=== PATIENT | male | born 2005 | race Caucasian/White ===

== ENCOUNTER 2024-05-10 20:18 | Emergency (ER) | payer SELFPAY ==
[~2024-05-10] VITALS: Ht 170.2 cm; Wt 55.0 kg
[2024-05-10 20:25] VITALS: O2SAT 100
[2024-05-10 22:31] LABS: HEMATOCRIT. 49.5 % (42.0-52.0); HEMOGLOBIN. 16.7 g/dL (14.0-18.0); MEAN CORPUSCULAR HEMOGLOBIN 30.4 pg (28.0-32.0); MEAN CORPUSCULAR HGB CONC 33.7 g/dL (31.0-37.0); MEAN CORPUSCULAR VOLUME 90.2 fL (80.0-94.0); MEAN PLATELET VOLUME 8.5 fl (7.4-10.4); PLATELET 211 x1000/uL (130-400); RED BLOOD CELL COUNT 5.49 mill/uL (4.7-6.1); RED CELL DISTRIBUTION WIDTH 12.9 % (11.6-14.6); WHITE BLOOD COUNT 20.7 x1000/uL (4.5-11.0)
[2024-05-10 22:39] LABS: CHLORIDE 104 mEq/L (98-107); POTASSIUM 4.3 mEq/L (3.5-5.1); SODIUM 140 mEq/L (136-145)
[2024-05-10 22:40] LABS: CALCIUM 10.2 mg/dL (8.7-10.4); CARBON DIOXIDE 19 mEq/L (21-32); DIFFERENTIAL COMMENT 1
[2024-05-10] MEDS: MAGNESIUM/ALUMINUM HYDROXIDE/SIMETHICONE 30ML UDC PO ONE (22:41)
[2024-05-10] MEDS: ONDANSETRON 4MG ODT PO ONE (22:42)
[2024-05-10 22:45] LABS: CREATININE 1.1 mg/dL (0.6-1.3); GLUCOSE 168 mg/dL (70-105); UREA NITROGEN BLOOD 16 mg/dL (9-23)
[2024-05-10 22:47] LABS: ALANINE AMINOTRANSFERASE 21 IU/L (10-49); ALBUMIN 4.8 g/dL (3.2-4.8); ASPARTATE AMINOTRANSFERASE 25 IU/L (<34); BILIRUBIN DIRECT 0.6 mg/dL (<=3.0); BILIRUBIN TOTAL 1.9 mg/dL (0.1-1.0); PROTEIN TOTAL 8.2 g/dL (6.0-8.3)
[2024-05-11 01:12] LABS: PLATELET ESTIMATE NORMAL
[2024-05-11] MEDS ORDERED: ONDA4TAB50 MT (04:10)
[2024-05-11 04:34] VITALS: BP 115/75; PULSE 90; RESP 16; TEMP 37.1; O2SAT 100
== END 2024-05-11 04:37 | disposition home or self-care (01) ==
LOC: ER 20:18
DX: K52.9 Noninfective gastroenteritis and colitis, unspecified (principal)
CPT/HCPCS: 99284; 80076; 80048; 83690; 85025; 36415; 76705; Q0162